=== PATIENT | male | born 1965 | race Caucasian/White ===

== ENCOUNTER 2016-08-21 05:35 | Observation (INO) | payer BC ==
[2016-08-14 16:22] VITALS: BMI 22.0
[~2016-08-21 05:35] MED LIST: DEXAMETHASONE SOD PHOSPHATE 10 MG/ML 1 ML VIAL IV ONE; HYDROmorphone 1 MG/ML 1 ML SYRINGE IVP PRN; MIDAZOLAM 2 MG/2 ML VIAL IV PRN; ONDANSETRON 4 MG/2 ML VIAL IVP ONE; Pre Op ABX Message 1 EACH MISC MISCELLANE ONE
[2016-08-21] MEDS ORDERED: LIDOCAINE 1% 20 ML VIAL (10MG/ML) FOR IV START INTRADERMA ONE (06:26)
[2016-08-21] MEDS: LACTATED RINGERS 1,000 ML IV SCH ×3 (06:33→21:12)
[2016-08-21 06:35] LABS: Glucose,Whole Blood 102 mg/dL (75-99)
[2016-08-21] MEDS ORDERED: ceFAZolin 2 GM in SODIUM CHLORIDE 0.9% 100 ML IVPB ONE (07:19)
[2016-08-21] MEDS ORDERED: fentaNYL (PF) 50 MCG/ML 2 ML AMP ONE (07:24)
[2016-08-21] MEDS ORDERED: KETOROLAC 30 MG/ML 1 ML VIAL ONE (07:24)
[2016-08-21] MEDS ORDERED: MIDAZOLAM 2 MG/2 ML VIAL ONE (07:24)
[2016-08-21] MEDS ORDERED: PROPOFOL 10 MG/ML 20 ML VIAL IV ONE (07:24)
[2016-08-21] MEDS ORDERED: PHENYLEPHRINE-0.9% NACL SYG 1 MG/10 ML SYRINGE ONE (07:24)
[2016-08-21] MEDS ORDERED: LIDOCAINE 1% INJ 10MG/ML (20 ML MDV) ONE (07:24)
[2016-08-21] MEDS ORDERED: HYDROmorphone (PF) 1 MG/ML ONE (07:24)
[2016-08-21] MEDS ORDERED: ROCURONIUM BROMIDE 10 MG/ML 10 ML VIAL IV ONE (07:24)
[2016-08-21] MEDS ORDERED: methylPREDNISolone ACETATE 80 MG/ML 1 ML VIAL INTRAARTIC ONE (07:54)
[2016-08-21] MEDS ORDERED: ceFAZolin 1,000 MG in SODIUM CHLORIDE 0.9% 1,000 ML IRRIGATION ONE (07:59)
[2016-08-21] MEDS ORDERED: LACTATED RINGERS 1,000 ML IV ONE (08:06)
[2016-08-21] MEDS ORDERED: hydrOXYzine PAMOATE 25 MG CAP PO PRN (08:57)
[2016-08-21] MEDS ORDERED: SENNOSIDES-DOCUSATE SODIUM 1 EACH TAB PO PRN (08:57)
[2016-08-21] MEDS ORDERED: HYDROcodone/APAP 5-325MG 1 EACH TAB PO PRN (08:57)
[2016-08-21] MEDS ORDERED: TEMAZEPAM 15 MG CAP PO PRN (08:57)
[2016-08-21] MEDS ORDERED: HYDROmorphone 1 MG/ML 1 ML SYRINGE IVP PRN ×2 (08:57)
[2016-08-21] MEDS ORDERED: fentaNYL (PF) 50 MCG/ML 2 ML AMP IV ONE (08:59)
--- NOTE | 2016-08-21 09:09 | P.ONQ ---
Anesthesiology Proc Note - PNB - Peripheral Nerve Block Performed Interscalene Single Time Out Performed: Yes Procedure Start Time: 09:10 Indication: Acute Post-Operative Pain, Analgesia Sedation Type: Sedate with meaningful contact maintained Preparation: Sterile Prep Position: Supine Needle Size: 50mm (2") Needle Gauge: 20 Technique: Ultrasound Injectate: 0.5% Ropivacaine (see comment for volume) Blood Aspirated: No Pain Paresthesia on Injection Noted: No Resistance on Injection: Normal Events: Uneventful and Well Tolerated (9996)
[2016-08-21] MEDS: ONDANSETRON 4 MG/2 ML VIAL IVP PRN ×2 (10:42→13:01)
[2016-08-21] MEDS: ceFAZolin 2 GM in SODIUM CHLORIDE 0.9% 100 ML IVPB SCH (15:53)
[2016-08-21] MEDS: PANTOPRAZOLE 40 MG TABLET PO SCH (17:44)
[2016-08-21] MEDS: HYDROcodone/APAP 5-325MG 1 EACH TAB PO PRN (19:59)
[2016-08-22] MEDS: ceFAZolin 2 GM in SODIUM CHLORIDE 0.9% 100 ML IVPB SCH (00:25)
[2016-08-22] MEDS: HYDROmorphone 1 MG/ML 1 ML SYRINGE IVP PRN ×2 (00:25→05:25)
[2016-08-22 01:57] VITALS: RESP 16
[2016-08-22] MEDS: HYDROcodone/APAP 5-325MG 1 EACH TAB PO PRN (02:40)
[2016-08-22] MEDS: LACTATED RINGERS 1,000 ML IV SCH (06:21)
[2016-08-22] MEDS ORDERED: HYDROcodone/APAP 7.5-325MG 1 EACH TAB PO PRN ×2 (08:08)
[2016-08-22 08:10] VITALS: BP 131/77; PULSE 57; TEMP 97.4
[2016-08-22] MEDS: PANTOPRAZOLE 40 MG TABLET PO SCH (08:16)
--- NOTE | 2016-08-22 08:27 | P.DS ---
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 The patient presented to the orthopedic office for evaluation. After discussion and consideration patient elects to proceed with a rotator cuff repair. The patient is seen preoperatively by Dr. Dyer and cleared for surgery. Patient is admitted to observation at [facility] on 08/21/2016 for right shoulder rotator cuff repair with distal clavicle excision and acromioplasty. The procedures performed without complication or sequelae. The patient is doing well postoperatively. Labs and vital signs are stable on day of discharge. On day of discharge patient's shoulder incision is healing well. There is minimal erythema. There is no drainage noted at this time. There is minimal soft tissue swelling to the right upper extremity. Patient has full hand, wrist , and elbow motion without difficulty or pain. Neurovascular status to the right upper extremity is intact. Patient is discharged to home in good condition. Patient Condition at Discharge: Stable Plan - Discharge Summary New Discharge Prescriptions: Cephalexin [Keflex] 500 mg PO Q8HR #15 cap HYDROcodone/APAP 7.5-325MG [[place] 7.5-325] 1 - 2 tab PO Q4-6H PRN #60 tab PRN Reason: Pain Sennosides-Docusate Sodium [Senokot-S] 2 tab PO DAILY #30 tablet Discharge Medication List Acetaminophen Tab [Tylenol Tab] 1,000 mg PO Q6HR PRN 08/14/16 [History] Cholecalciferol [Vitamin D3] 4,000 unit PO DAILY 08/14/16 [History] Omeprazole [PriLOSEC] 20 mg PO QAM 08/14/16 [History] Cephalexin [Keflex] 500 mg PO Q8HR #15 cap 08/21/16 [Rx] Sennosides-Docusate Sodium [Senokot-S] 2 tab PO DAILY #30 tablet 08/21/16 [Rx] HYDROcodone/APAP 7.5-325MG [[place] 7.5-325] 1 - 2 tab PO Q4-6H PRN #60 tab [Rx] Follow up Appointment(s)/Referral(s): Terrell Alas DO [Doctor of Osteopathic Medicine] - 2 Weeks Activity/Diet/Wound Care/Special Instructions: Keep incision clean and dry Change dressing daily May shower in 3 days if no drainage from incision Keep arm sling/abductor pillow in place except when bathing Follow up with Dr. Alas in 2 weeks. Call [facility] with any questions or concerns. [phone] Discharge Disposition: HOME SELF-CARE
--- NOTE | 2016-08-27 21:20 | OP ---
DATE OF SERVICE: 08/21/2016 SURGEON: DANIEL KING DO [facility] DIRECTOR: Charlene Odom NP PREOPERATIVE DIAGNOSIS: Chronic right rotator cuff impingement Grade II cuff tear. POSTOPERATIVE DIAGNOSIS: Chronic right rotator cuff impingement Grade II cuff tear. OPERATION: Resection of the distal right clavicle, Decompression acromioplasty, right rotator cuff repair utilizing Arthrex bioabsorbable anchor anchor. ANESTHESIA: ESTIMATED BLOOD LOSS: SPECIMENS REMOVED: COMPLICATIONS: OPERATIVE FINDINGS: DESCRIPTION OF PROCEDURE: The patient was taken to the operative suite and placed in supine position. General inhalation anesthesia was performed by the Department of Anesthesiology. The patient was placed in a beach chair position, appropriately padded and secured. Betadine prep was carried out over the right shoulder and sterile drapes applied in the usual manner. An anterior lateral incision was developed above the acromion. Sharp dissection through the subcutaneous tissue was performed. The superior clavicle ligament was identified and dissected. The distal 1cm of the clavicle was excised. The anterior deltoid was released on the anterolateral border. The coracoacromial ligament was released. The anterolateral decompression acromioplasty was performed. The tear of the rotator cuff was visualized. Direct visualization of the supraspinatus tendon was noted detachment. The cuff was then prepared for the repair. A 5.5 Arthrex bioabsorbable anchor was secured. The rotator cuff was repaired. The area was irrigated with antibiotic solution. The deltoid was then reapproximated back into the acromion where #1 Ethibond suture. The deep fascia was approximated with #1 Vicryl suture in a running fashion. Subcutaneous tissues were approximated with 2-0 Vicryl suture in an interrupted fashion. Skin was approximated with 3-0 Quill suture in a subcuticular fashion. The incision was sealed with Dermabond. Sterile dressings were applied. The patient was placed in an abductor pillow splint, transferred to the recovery room in satisfactory postoperative condition. GROSS PATHOLOGY: There was a complete tear of the supraspinatus tendon of the right shoulder. [facility]
== END 2016-08-22 11:43 | disposition home or self-care (01) ==
LOC: OR 05:35 → EDSTATUS 07:00 → 3SUR 08:46 → OR 13:01 → 3SUR 13:01
PROVIDERS: ADMIT Orthopaedic Surgery; ATTEND Orthopaedic Surgery
DX: M75.41 Impingement syndrome of right shoulder (principal); M75.101 Unspecified rotator cuff tear or rupture of right shoulder, not specified as traumatic; M19.011 Primary osteoarthritis, right shoulder; F17.200 Nicotine dependence, unspecified, uncomplicated
CPT/HCPCS: 88305; 88311; 23412; 23130; G0378 ×2; C1713; J2250; J1040; J1100; J0690 ×3; J2405; J2001; J3010; J1885; J1170 ×2; J2370; J2704; 96374; 96375; 96376

== ENCOUNTER 2016-12-18 07:43 | Day surgery (SDC) | payer BC, OTHER ==
[~2016-12-18 07:43] MED LIST changes: +FAMOTIDINE 20 MG/2 ML VIAL IV PRN; +LIDOCAINE 1% 20 ML VIAL (10MG/ML) FOR IV START INTRADERMA PRN; -ONDANSETRON 4 MG/2 ML VIAL IVP ONE; -Pre Op ABX Message 1 EACH MISC MISCELLANE ONE; +SCOPOLAMINE 1.5MG/72HR PATCH TRANSDERM ONE; +ceFAZolin 2 GM in SODIUM CHLORIDE 0.9% 100 ML IVPB ONE
[2016-12-18] MEDS: LACTATED RINGERS 1,000 ML IV SCH ×2 (08:24→09:19)
[2016-12-18] MEDS ORDERED: ONDANSETRON 4 MG/2 ML VIAL IVP ONE ×2 (08:37→11:34)
[2016-12-18] MEDS ORDERED: fentaNYL (PF) 50 MCG/ML 2 ML AMP IVP ONE (08:45)
[2016-12-18] MEDS ORDERED: MIDAZOLAM 2 MG/2 ML VIAL IVP ONE (08:45)
--- NOTE | 2016-12-18 08:57 | P.ONQ ---
Anesthesiology Proc Note - PNB - Peripheral Nerve Block Performed Left Interscalene Single Time Out Performed: Yes Indication: Acute Post-Operative Pain, Analgesia Specifically requested for management of pain by DrAldo: Terrell Alas Sedation Type: Sedate with meaningful contact maintained Preparation: Sterile Prep Position: Supine Catheter: None Needle Types: Other (see comment) (Pajunk) Needle Size: 50mm (2") Needle Gauge: 20 Technique: Ultrasound Injectate: Other (see comment) (lido 15cc 2% + naropin 15cc 0.5%) Adjunct: Epinephrine (see comment for dilution ratio) (1:200,000) Blood Aspirated: No Pain Paresthesia on Injection Noted: No Resistance on Injection: Normal Events: Uneventful and Well Tolerated
[2016-12-18] MEDS ORDERED: HYDROmorphone 1 MG/ML 1 ML SYRINGE IVP PRN ×3 (08:59)
[2016-12-18] MEDS ORDERED: HYDROcodone/APAP 5-325MG 1 EACH TAB PO PRN (08:59)
[2016-12-18] MEDS ORDERED: SENNOSIDES-DOCUSATE SODIUM 1 EACH TAB PO PRN (08:59)
[2016-12-18] MEDS ORDERED: LIDOCAINE 1% INJ 10MG/ML (20 ML MDV) ONE (09:22)
[2016-12-18] MEDS ORDERED: ePHEDrine 50 MG/ML 1 ML AMP ONE (09:22)
[2016-12-18] MEDS ORDERED: MIDAZOLAM 2 MG/2 ML VIAL ONE (09:22)
[2016-12-18] MEDS ORDERED: fentaNYL (PF) 50 MCG/ML 2 ML AMP ONE (09:22)
[2016-12-18] MEDS ORDERED: PROPOFOL 10 MG/ML 20 ML VIAL IV ONE (09:22)
[2016-12-18] MEDS ORDERED: SUCCINYLCHOLINE CHLORIDE 100 MG/5 ML SYR IV ONE (09:22)
[2016-12-18] MEDS ORDERED: ceFAZolin 1,000 MG in SODIUM CHLORIDE 0.9% 1,000 ML IRRIGATION ONE (09:55)
[2016-12-18] MEDS ORDERED: LACTATED RINGERS 1,000 ML IV ONE (10:05)
[2016-12-18] MEDS ORDERED: METOCLOPRAMIDE 5 MG/ML 2 ML VIAL IVP ONE (11:46)
[2016-12-18 12:39] VITALS: BMI 23.7
[2016-12-18] MEDS: HYDROcodone/APAP 5-325MG 1 EACH TAB PO PRN ×2 (15:14→20:35)
[2016-12-18] MEDS: ceFAZolin 2 GM in SODIUM CHLORIDE 0.9% 100 ML IVPB SCH ×2 (16:28→23:30)
[2016-12-18 20:25] VITALS: RESP 16
[2016-12-19] MEDS: HYDROcodone/APAP 5-325MG 1 EACH TAB PO PRN ×2 (01:59→07:20)
[2016-12-19] MEDS: LACTATED RINGERS 1,000 ML IV SCH (05:48)
--- NOTE | 2016-12-19 09:06 | P.DS ---
Providers Expected date of discharge: 12/19/16 Attending physician: Terrell Alas Primary care physician: Sheldon Brown Kut - Discharge Diagnosis(es) (1) Rotator cuff tear, left Current Visit: Yes Status: Acute (2) Status post rotator cuff repair Current Visit: No Status: Acute Hospital Course: This is a 51-year-old male with known history of rotator cuff tear of the left shoulder. The patient presents for evaluation. After discussion and consideration patient elects to proceed with acromioplasty excision distal clavicle rotator cuff repair left shoulder. The patient is seen preoperatively by Dr. Alas and cleared for surgery. Patient is admitted to [facility] on 12/18/2016 for acromioplasty excision distal clavicle rotator cuff repair left shoulder. The procedures performed without complication or sequelae. The patient is doing well postoperatively. Labs and vital signs are stable on day of discharge. On day of discharge patient's shoulder incision is healing well. There is minimal erythema. There is no drainage noted at this time. There is minimal soft tissue swelling to the shoulder. Patient has full wrist, hand, and elbow motion without difficulty or pain. Neurovascular status to the left upper extremity is intact. Patient is discharged home in good condition. Please see med rec for accurate list of home medications. Plan - Discharge Summary New Discharge Prescriptions: New HYDROcodone/APAP 7.5-325MG [[place] 7.5-325] 1 - 2 tab PO Q4-6H PRN #90 tab PRN Reason: Pain Sennosides-Docusate Sodium [Senokot-S] 1 tab PO BID #60 tablet No Action Cholecalciferol [Vitamin D3] 4,000 unit PO DAILY Acetaminophen Tab [Tylenol Tab] 1,000 mg PO Q6HR PRN PRN Reason: Pain Omeprazole [PriLOSEC] 20 mg PO QAM Discharge Medication List Acetaminophen Tab [Tylenol Tab] 1,000 mg PO Q6HR PRN 08/14/16 [History] Cholecalciferol [Vitamin D3] 4,000 unit PO DAILY 08/14/16 [History] Omeprazole [PriLOSEC] 20 mg PO QAM 08/14/16 [History] HYDROcodone/APAP 7.5-325MG [[place] 7.5-325] 1 - 2 tab PO Q4-6H PRN #90 tab [Rx] Sennosides-Docusate Sodium [Senokot-S] 1 tab PO BID #60 tablet 12/19/16 [Rx] Follow up Appointment(s)/Referral(s): Terrell Alas DO [Doctor of Osteopathic Medicine] - 10 Days Activity/Diet/Wound Care/Special Instructions: Maintain sling to left upper extremity Daily dressing changes, keep incision clean and dry May shower if no drainage from incision [facility] with questions or concerns [phone] Discharge Disposition: HOME SELF-CARE
[2016-12-19 10:04] VITALS: BP 137/83; PULSE 66; TEMP 97.9
--- NOTE | 2016-12-19 21:26 | OP ---
DATE OF PROCEDURE: 12/18/2016 SURGEON: Terrell Alas DO STRATEGIC DEBRIEFING OFFICER: Thu Aldridge PA-C PREOPERATIVE DIAGNOSIS: Torn left rotator cuff. POSTOPERATIVE DIAGNOSIS: Torn left rotator cuff PROCEDURE PERFORMED: Resection of distal left clavicle, decompression acromioplasty, and left rotator cuff repair. PROCEDURE: Patient was taken to the operative suite and placed in supine position. Regional block anesthesia was performed by the department of anesthesia. He was then placed in beach chair position, padded and secured. Betadine prep was carried out over the left shoulder. Sterile drapes were applied in the usual manner. A minimally invasive anterolateral incision was developed over the acromion. Sharp dissection through the subcutaneous tissue was carried out. superior clavicle ligament identified and dissected. A 1 cm of the clavicle was excised with a bone saw. anterior deltoid muscle was released along the anterolateral border. Coracoacromial ligament was released. The lateral decompression acromioplasty was performed. Acromion was shaped with a saw and a bone rasp and decompression of the subacromial was carried out. Area was irrigated with antibiotic solution. The repair of the rotator cuff was done with #1 Ethibond suture in running fashion. Deltoid was then reapproximated back into the anterior acromion. The fascia was approximated with #1 Vicryl suture in running fashion. Subcutaneous tissue was approximated with 2-0 Vicryl suture in interrupted fashion. Skin was approximated with 3-0 Quill suture in a subcuticular fashion. Incision was sealed with Dermabond. Sterile pressure dressing was applied. Patient was placed in a abductor pillow splint and transferred to the recovery room in satisfactory condition. GROSS PATHOLOGY: There was rotator tear wiht cuff impingement MTDD
== END 2016-12-19 11:11 | disposition home or self-care (01) ==
LOC: OR 07:43 → 3SUR 10:43 → OR 12-19 11:11
PROVIDERS: ATTEND Orthopaedic Surgery
DX: M75.102 Unspecified rotator cuff tear or rupture of left shoulder, not specified as traumatic (principal); M75.42 Impingement syndrome of left shoulder; M75.52 Bursitis of left shoulder; M19.011 Primary osteoarthritis, right shoulder; K21.9 Gastro-esophageal reflux disease without esophagitis; Z79.891 Long term (current) use of opiate analgesic; Z79.899 Other long term (current) drug therapy; Z72.0 Tobacco use
CPT/HCPCS: 23120; 23130; J2250; J1100; J2765; J0690 ×2; J2405; J2001; J3010; J1170; J0330; J2704